=== PATIENT | female | born 1945 | race Caucasian/White ===

== ENCOUNTER → 2024-10-18 12:43 | Outpatient (CLI) | payer MEDICARE, OTHER, SELFPAY ==
--- NOTE | 2024-10-18 12:50 | DI.NM.S_ITS ---
PROCEDURE: NM HIDA NO EJECTION FRACTION RADIOPHARMACEUTICAL: 5.5 mCi Tc-99m mebrofenin IV. INDICATIONS: R/O BILE LEAK (cholecystectomy March 2024 per technologist notes) TECHNIQUE: Following intravenous administration of Tc-99m mebrofenin, sequential anterior abdominal images were obtained through at least 60 minutes. COMPARISON: [facility], CT, CT ABDOMEN PELVIS WITH CONTRAST, 01/08/2024, 14:56. Findings and impression: There is prompt uptake of radiotracer into the liver, with excretion into the biliary system and bowel. Accumulation of radiotracer is seen overlying the presumed cholecystectomy bed, which may represent ectatic cystic duct remnant or remnant gallbladder if there is a history of partial cholecystectomy. Differential also includes a contained leak. There is no free flowing radiotracer to suggest free-flowing bile leak. Dictated by: Jm Mcmillan M.D. on 10/18/2024 at 17:28 Approved by: Jm Mcmillan M.D. on 10/18/2024 at 17:32
== END ==
PROVIDERS: Family Provider Orthopaedic Surgery; PCP Internal Medicine; Referring Provider Surgery; Visit Provider Surgery
DX: R10.10 Upper abdominal pain, unspecified (principal)
CPT/HCPCS: 78226; A9537